=== PATIENT | female | born 1945 | race Hispanic/Latino ===

== ENCOUNTER 2017-01-22 15:14 | Outpatient (CLI) | payer MEDICARE ==
--- NOTE | 2017-01-22 16:12 | XRay Report ---
AP abdomen: There is a moderate fecal load predominantly located in the ascending colon. The remainder of the large bowel is unremarkable as is the small bowel pattern. There is no abdominal mass and no free air. No abnormal soft tissue calcification. Unremarkable osseous structures. Impression: Moderate fecal loading. No evidence of obstruction.
== END 2017-01-22 15:15 | disposition home or self-care (01) ==
LOC: SPVIMAG 15:14
PROVIDERS: ATTEND Internal Medicine
DX: R11.0 Nausea (principal)
CPT/HCPCS: 74000